=== PATIENT | female | born 1975 | race Two or more races ===

== ENCOUNTER → 2020-02-27 | Outpatient (CLI) | payer BC ==
[2020-02-27 12:48] LABS: MEAN CORP HGB 28.4 pg (26-34); RED CELL DISTRIBUTION WIDTH 12.8 % (11.5-14.5)
[2020-02-27 13:21] LABS: ALANINE AMINOTRANSFERASE(ML) 32 U/L (12-78); ALKALINE PHOSPHATASE 58 U/L (50-136); ASPARTATE AMINO TRANSFERASE 18 U/L (0-35); CALCIUM 9.2 mg/dL (8.4-10.5); CARBON DIOXIDE 24.8 mmol/L (20.0-32); CHOLESTEROL 240 mg/dL (120-240); GLUCOSE 121 mg/dL (70-110); HDL CHOLESTEROL 50 mg/dL (32-96)
== END | disposition home or self-care (01) ==
LOC: NPLAB 12:13
PROVIDERS: ATTEND Specialist
DX: E11.9 Type 2 diabetes mellitus without complications (principal); I20.9 Angina pectoris, unspecified; R07.9 Chest pain, unspecified; Z20.828 Contact with and (suspected) exposure to other viral communicable diseases
CPT/HCPCS: 36415; 80053; 80061; 83036; 84443; 84484; 85027; 86140; 87633